=== PATIENT | female | born 1980 ===

== ENCOUNTER 2019-05-21 08:18 | Outpatient (CLI) | payer OTHER | END 2019-05-21 09:30 | disposition home or self-care (01) | LOC: PRENATAL 08:18 | DX: O24.410 Gestational diabetes mellitus in pregnancy, diet controlled (principal); O09.512 Supervision of elderly primigravida, second trimester; O34.211 Maternal care for low transverse scar from previous cesarean delivery ==

== ENCOUNTER 2019-06-18 10:25 | Outpatient (CLI) | payer OTHER | END 2019-06-18 11:30 | disposition home or self-care (01) | LOC: PRENATAL 10:25 | DX: O26.843 Uterine size-date discrepancy, third trimester (principal); O24.419 Gestational diabetes mellitus in pregnancy, unspecified control; O09.293 Supervision of pregnancy with other poor reproductive or obstetric history, third trimester; O36.63X0 Maternal care for excessive fetal growth, third trimester, not applicable or unspecified ==

== ENCOUNTER 2019-07-05 18:27 | Inpatient (IN) | payer OTHER ==
[~2019-07-05] VITALS: Ht 175.3 cm; Wt 2.7 kg
[2019-07-05] MEDS ORDERED: PRENATAL TABLE1 EAC1 PO (18:45)
[2019-07-05] MEDS ORDERED: ASA81 MG PO (18:45)
== END 2019-07-09 15:10 | disposition home or self-care (01) | DRG 785 ==
LOC: OBS/DEL 18:27 → LDR 07-06 07:38 → OB/GYN 07-06 07:38 → O/R 07-06 11:46 → OB/GYN 07-06 13:18
PROVIDERS: ADMIT Obstetrics & Gynecology
PROC: 0UB70ZZ Excision of Bilateral Fallopian Tubes, Open Approach (ICD-10-PCS; 2019-07-06)
PROC: 4A1HXCZ Monitoring of Products of Conception, Cardiac Rate, External Approach (ICD-10-PCS; 2019-07-06)
PROC: 4A033R1 Measurement of Arterial Saturation, Peripheral, Percutaneous Approach (ICD-10-PCS; 2019-07-06)
PROC: 10D00Z1 Extraction of Products of Conception, Low, Open Approach (ICD-10-PCS; principal; 2019-07-06 08:00)
DX: O82 Encounter for cesarean delivery without indication (principal); O34.211 Maternal care for low transverse scar from previous cesarean delivery; O24.414 Gestational diabetes mellitus in pregnancy, insulin controlled; O13.3 Gestational [pregnancy-induced] hypertension without significant proteinuria, third trimester; N83.8 Other noninflammatory disorders of ovary, fallopian tube and broad ligament; O26.893 Other specified pregnancy related conditions, third trimester; Z30.2 Encounter for sterilization; Z3A.37 37 weeks gestation of pregnancy; Z37.0 Single live birth

== ENCOUNTER 2019-07-12 20:12 | Inpatient (IN) | payer OTHER ==
[~2019-07-12] VITALS: Ht 175.3 cm; Wt 107.0 kg
[~2019-07-12 20:12] MED LIST: ASA81 MG PO; PRENATAL TABLE1 EAC1 PO
[2019-07-12] MEDS ORDERED: METROPOLOL (20:27)
== END 2019-07-15 16:10 | disposition home or self-care (01) | DRG 776 ==
LOC: ER 20:12 → OB/GYN 07-13 13:20
PROVIDERS: ADMIT Obstetrics & Gynecology
PROC: B246ZZZ Ultrasonography of Right and Left Heart (ICD-10-PCS; principal; 2019-07-13)
DX: O13.5 Gestational [pregnancy-induced] hypertension without significant proteinuria, complicating the puerperium (principal); I50.21 Acute systolic (congestive) heart failure; R31.0 Gross hematuria; I11.0 Hypertensive heart disease with heart failure; I35.8 Other nonrheumatic aortic valve disorders